=== PATIENT | male | born 1960 | race Caucasian/White ===

== ENCOUNTER 2016-09-02 03:31 | Emergency (ER) | payer OTHER ==
[~2016-09-02] VITALS: Ht 175.3 cm; Wt 93.0 kg
[2016-09-02 03:51] VITALS: BP 127/85
[2016-09-02] MEDS ORDERED: VIBRAMYCIN100 MG PO ×2 (04:59→05:35)
--- NOTE | 2016-09-02 05:00 | ED ANIMAL BITE/WOUND CHECK ---
History of Present Illness General Chief Complaint: Animal/Insect Bite Stated Complaint: "TICK STUCK ON PRIVATE PART" PER PT Source: patient, old records Exam Limitations: no limitations Vital Signs & Intake/Output Vital Signs & Intake/Output Vital Signs Date Time Temp Pulse Resp B/P Pulse O2 O2 Flow FiO2 Ox Delivery Rate 09/02 0351 97.8 73 16 127/85 97 Room Air Allergies Coded Allergies: No Known Allergies (09/02/16) Reconcile Medications Doxycycline Hyclate (Vibramycin) 100 MG CAPSULE 1 CAP PO BID tick bite Triage Note: 55yo MALE TO TRIAGE W/CO PORTION OF TICK STUCK IN HIS "PRIVATE PARTS" STATES HE REMOVED A PORTION OF IT 1HR AGO. Triage Nurses Notes Reviewed? yes Onset: Just prior to arrival Duration: hour(s):, better, continues in ED Timing: recent history Injury Environment: home Is Injury an Animal Bite? No Severity: mild No Modifying Factors: none Modifying Factors: Improves With: other. HPI: Prior to admission patient removed the tick from his right scrotum. He denies fever chills nausea vomiting diarrhea abdominal pain chest pain shortness breath headache dysuria rash bleeding. He was in the [facility] 3 days and 10 days prior to admission. Past History Travel History Traveled to [place] past 21 day No Medical History Any Pertinent Medical History? see below for history Cardiovascular: hypertension Surgical History Surgical History: non-contributory Psychosocial History What is your primary language Korean Tobacco Use: Never used Family History Hx Contributory? No Review of Systems Review of Systems Constitutional: Reports: no symptoms. EENTM: Reports: no symptoms. Respiratory: Reports: no symptoms. Cardiovascular: Reports: no symptoms. GI: Reports: no symptoms. Genitourinary: Reports: see HPI. Musculoskeletal: Reports: no symptoms. Skin: Reports: see HPI. Neurological/Psychological: Reports: no symptoms. Hematologic/Endocrine: Reports: no symptoms. Immunologic/Allergic: Reports: no symptoms. All Other Systems: Reviewed and Negative Physical Exam Physical Exam General Appearance: well developed/nourished, no apparent distress, alert, awake , mild distress Head: atraumatic, normal appearance Eyes: Bilateral: normal appearance, PERRL, EOMI. Ears, Nose, Throat: normal pharynx, normal ENT inspection, hearing grossly normal Neck: normal inspection, supple, full range of motion, no midline tenderness Respiratory: normal breath sounds, chest non-tender, no respiratory distress, quiet respiration, lungs clear Cardiovascular: regular rate/rhythm, normal peripheral pulses, norml femoral pulses equa Peripheral Pulses: 4+ carotid (R), 4+ carotid (L) Gastrointestinal: normal bowel sounds, soft, non-tender, no organomegaly Back: normal inspection, normal range of motion, no vertebral tenderness Extremities: normal range of motion, no ligament instability Neurologic/Psych: awake, alert, oriented x 3, normal mood/affect Reflexes: 2+: bicep (R), bicep (L). Skin: intact, normal color, warm/dry, tick remnant right scrotum Lymphatic: no anterior cervical maría Progress Differential Diagnosis: tick bite Plan of Care: Current Medications Sig/Ko Start time Last Medication Dose Stop Time Status Admin Doxycycline Hyclate 100 MG ONCE ONE 09/02 0500 UNVr (Vibramycin) 09/02 0501 Tick removed with forceps (LUDA TREVINO MD) Departure Departure Time of Disposition: 457 Disposition: HOME OR SELF CARE Condition: Stable Clinical Impression Primary Impression: Tick bite of scrotum Qualifiers: Encounter type: initial encounter Qualified Codes: S30.863A - Insect bite (nonvenomous) of scrotum and testes, initial encounter; W57.XXXA - Bitten or stung by nonvenomous insect and other nonvenomous arthropods, initial encounter Referrals: YANA PAIGE MD (PCP/Family) Departure Forms: Customer Survey General Discharge Information Prescriptions: Current Visit Scripts Doxycycline Hyclate (Vibramycin) 1 CAP PO BID #[id number] CAP Procedures Additional Procedures Additional Procedures: partial tick remnants removed with forceps after 1% lidocaine infiltrated 1 ml
== END 2016-09-02 05:53 ==
LOC: ERH 03:31
DX: S30.863A Insect bite (nonvenomous) of scrotum and testes, initial encounter (principal); W57.XXXA Bitten or stung by nonvenomous insect and other nonvenomous arthropods, initial encounter; Y92.9 Unspecified place or not applicable; Y93.9 Activity, unspecified